=== PATIENT | female | born 1940 | race Caucasian/White ===

== ENCOUNTER → 2018-04-01 | Outpatient (CLI) | payer MEDICARE, OTHER ==
[~2018-04-01] MED LIST: ASPI-715 PO; ATOR10TA65 PO; CHOL10005 PO; GLUC100026 PO; HYDR12.558 PO; HYDR12.561; HYDR12.561 PO; IBUP600T22 PO; LOR5/325 PO; MILK175C PO; MULT-976 PO; OME20PT PO; OMEP-125 PO; OND4 SL; OXYC-865 PO; PAN40 PO; PER PO; PNEU0.5D3 IM; PRED20TA6 PO; RANI150C17 PO; ROSU20TA5 PO; VALA100062 PO; vitamins
[2018-04-01 10:51] LABS: PLATELET COUNT, AUTOMATED 230 K/uL (150-450)
[2018-04-01 11:11] LABS: LDL CHOLESTEROL 65 mg/dl
== END ==
LOC: LAB 10:12
PROVIDERS: ATTEND Nurse Practitioner Family
DX: I10 Essential (primary) hypertension (principal); K21.9 Gastro-esophageal reflux disease without esophagitis; Z86.39 Personal history of other endocrine, nutritional and metabolic disease; E55.9 Vitamin D deficiency, unspecified; Z79.899 Other long term (current) drug therapy; E53.8 Deficiency of other specified B group vitamins
CPT/HCPCS: 36415; 82040; 82247; 82306; 82310; 82374; 82435; 82465; 82565; 82607; 82947; 83718; 84075; 84132; 84155; 84295; 84443; 84450; 84460; 84478; 84520; 85025

== ENCOUNTER → 2019-01-01 | Outpatient (CLI) | payer MEDICARE, OTHER ==
[~2019-01-01] MED LIST changes: -MILK175C PO; +MILK175C2 PO
[2019-01-01 11:29] LABS: LDL CHOLESTEROL 70 mg/dl
== END ==
LOC: LAB 09:59
PROVIDERS: ATTEND Nurse Practitioner Family
DX: E87.8 Other disorders of electrolyte and fluid balance, not elsewhere classified (principal); E78.00 Pure hypercholesterolemia, unspecified; R53.81 Other malaise; E55.9 Vitamin D deficiency, unspecified
CPT/HCPCS: 36415; 82040; 82247; 82306; 82310; 82374; 82435; 82465; 82565; 82607; 82947; 83718; 84075; 84132; 84155; 84295; 84443; 84450; 84460; 84478; 84520; 85027

== ENCOUNTER → 2019-01-22 | Outpatient (CLI) | payer MEDICARE, OTHER ==
--- NOTE | 2019-01-22 20:04 | RADIOLOGY IMAGING REPORT ---
FACILITY: [facility] PATIENT NAME: Lynn Carl : 1940 MR: [id number] V: [id number] EXAM DATE: ORDERING PHYSICIAN: YASMIN MTZ TECHNOLOGIST: Location: [facility] Patient: Lynn Carl : 1940 Visit/Account:[id number] Date of Sevice: 01/22/2019 DEXA Scan Clinical history: Senile osteoporosis. Comparison: DEXA scan from 07/10/2009. LUMBAR SPINE: The bone mineral density (BMD) measured from L1-L4 correlates with a Z-score 1.6 and a T-score of 0 which is Normal as defined by the World Health Organization. The corresponding risk of fracture in t he lumbar spine is Not increased compared with a young adult reference population. This value has in creased by 2.5 % since the prior study. More than 5% change is considered significant. HIP: Bone mineral density (BMD) measured in the Left femoral neck region correlates with a Z-score 0.5 and a T-score of -1.3 which is consistent with osteopenia as defined by the World Health Organization. The corresponding risk of fracture in the hip is increased 2-3 times compared with a [facility]. The total hip value has decreased by 5.8 % since the prior study. More than 5% c hange is considered significant. Bone mineral density (BMD) measured in the Femoral Neck region measures 0.85 g/cm2. IMPRESSION: 1. Lumbar spine: Normal. There has been No significant change in the bone mineral density since the previous exam. 2. Left Hip: Consistent with osteopenia. There has been a significant decrease in the bone mineral density of the total hip since the previous exam. 3. Femoral Neck: Bone Mineral Density is 0.85 g/cm2 The next DEXA scan of this patient should include the following sites: L1-L4 and the left hip. FRAX? WHO Fracture Risk Assessment Tool link: <http://www.shef.ac.uk/FRAX/tool.jsp?[email or web address]> PLEASE NOTE: 1) The World Health Organization defines low BMD as follows: T-score Normal > -1 Osteopenia < -1 and > -2.5 Osteoporosis < -2.5 without fractures Established osteoporosis < -2.5 with fractures 2) In general, you may wish to consider: Diagnosis Treatment Follow-up DEXA Normal BMD Prevention 2-3 years Osteopenia Prevention/therapy 1-2 years Osteoporosis Therapy Yearly 3) Fracture risk estimated from the T-score is more accurate for vertebral fractures (often spontane ous) than for hip fractures. Report Dictated By: Mitchel Truong MD at 01/22/2019 7:58 PM Report E-Signed By: Mitchel Truong MD at 01/22/2019 8:00 PM WSN:[id number]
== END ==
LOC: RAD 07:06
PROVIDERS: ATTEND Nurse Practitioner Family
DX: M81.0 Age-related osteoporosis without current pathological fracture (principal)
CPT/HCPCS: 77080